=== PATIENT | male | born 1990 | race Two or more races ===

== ENCOUNTER 2019-04-07 12:10 | Emergency (ER) | payer MEDICAID, OTHER ==
[2019-04-07 12:19] VITALS: BP 118/74; PULSE 65; RESP 18; TEMP 99.1; O2SAT 98
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
== END 2019-04-07 13:38 | disposition home or self-care (01) ==
LOC: C.ER 12:10
DX: S01.01XA Laceration without foreign body of scalp, initial encounter (principal); S00.83XA Contusion of other part of head, initial encounter; W22.8XXA Striking against or struck by other objects, initial encounter